=== PATIENT | female | born 1955 | race Caucasian/White ===

== ENCOUNTER 2018-03-08 19:05 | Emergency (ER) | payer BC ==
[2018-03-08 19:22] VITALS: BP 129/68; PULSE 100; RESP 20
[2018-03-08] MEDS ORDERED: HYDROcodone/APAP 5-325MG 1 EACH TAB PO STA (20:01)
[2018-03-08 20:20] VITALS: TEMP 99.1
--- NOTE | 2018-03-08 20:24 | ED ---
Lower Extremity Injury HPI - General Chief Complaint: Extremity Injury, Lower Stated Complaint: rt foot injury Time Seen by Provider: 03/08/18 19:32 Source: patient Mode of arrival: ambulatory Limitations: no limitations - History of Present Illness Initial Comments: This is a 62-year-old female who denies any past medical history who presents today for chief complaint of fall. Patient states that 2:30pm this afternoon she was helping move things out of her late sister's home, he was carrying a box of glasses and cannot see her feet she then tripped over a pile plastic shelving, stating that she rolled her right ankle, patient stated that she then felt to her bottom because of the pain in her right ankle. However she was able to stand, partial weight-bear, and ambulate following the fall. Pt states the pain is 6-8/10 that is localized to the right ankle and right side of forefoot, without radiation. Patient denies any loss consciousness, head injury , any chest pain, shorts breath or dizziness prior to fall. Patient states that it was mechanical nature. Patient really noticed swelling to the lateral aspect of her right ankle. She tried to ice and elevate her ankle and tibia ibuprofen 800 for pain- she stated this did not help. Pt denies numbness, tingling, parathesias, loss of sensation, coolness of the extremity, creptius/ laxity of the ankle joint, change in skin color. Pt presented to the ER when the swelling increased and pain wound not subside. Patient denies any recent fever, chills, shortness of breath, chest pain, back pain, abdominal pain, nausea or vomiting, numbness or tingling, dysuria or hematuria, constipation or diarrhea, headaches or visual changes, or any other complaints. - Related Data Home Medications Medication Instructions Recorded Confirmed Aspirin EC [Ecotrin Low Dose] 81 mg PO DAILY 03/08/18 03/08/18 Cholecalciferol [Vitamin D3] 1,000 unit PO DAILY 03/08/18 03/08/18 Cyanocobalamin [Vitamin B-12] 500 mcg PO DAILY 03/08/18 03/08/18 Ibuprofen [Motrin] 800 mg PO DAILY PRN 03/08/18 03/08/18 Levothyroxine Sodium [Synthroid] 100 mcg PO DAILY 03/08/18 03/08/18 Pravastatin Sodium [Pravachol] 40 mg PO HS 03/08/18 03/08/18 Turmeric Root Extract [Turmeric] 500 mg PO DAILY 03/08/18 03/08/18 Vitamin E 100 unit PO DAILY 03/08/18 03/08/18 buPROPion HCL [Wellbutrin SR] 200 mg PO BID 03/08/18 03/08/18 Allergies Allergy/AdvReac Type Severity Reaction Status Date / Time Iodinated Contrast- Oral and Allergy Anaphylaxis Verified 03/08/18 19:30 IV Dye Penicillins Allergy Rash/Hives Verified 03/08/18 19:30 Review of Systems ROS Statement: Those systems with pertinent positive or pertinent negative responses have been documented in the HPI. ROS Other: All systems not noted in ROS Statement are negative. Constitutional: Denies: fever, chills ENT: Denies: ear pain Respiratory: Denies: cough, dyspnea, wheezes, stridor Cardiovascular: Denies: chest pain, palpitations Endocrine: Denies: fatigue Gastrointestinal: Denies: abdominal pain, nausea, vomiting, diarrhea, hematemesis Genitourinary: Denies: urgency, dysuria Musculoskeletal: Reports: as per HPI, joint swelling, arthralgia Skin: Denies: lesions, change in color Neurological: Denies: headache, weakness, numbness, paresthesias, confusion, abnormal gait Past Medical History Past Medical History: No Reported History History of Any Multi-Drug Resistant Organisms: None Reported Past Surgical History: No Surgical Hx Reported Past Psychological History: No Psychological Hx Reported Smoking Status: Current every day smoker Past Alcohol Use History: None Reported Past Drug Use History: None Reported General Exam - General Exam Comments Initial Comments: General: The patient is awake and alert, in no distress, and does not appear acutely ill. Eye: Pupils are equal, round and reactive to light, extra-ocular movements are intact. No nystagmus. There is normal conjunctiva bilaterally. No signs of icterus. Ears, nose, mouth and throat: There are moist mucous membranes and no oral lesions. Neck: The neck is supple, there is no tenderness or JVD. Cardiovascular: There is a regular rate and rhythm. No murmur, rub or gallop is appreciated. Respiratory: Lungs are clear to auscultation, respirations are non-labored, breath sounds are equal. No wheezes, stridor, rales, or rhonchi. Musculoskeletal: There is soft tissue swelling over the lateral aspect of the right lateral malleolus. No obvious deformities or palpable step offs. Pt able to fully range and 5/5 strength with dorsiflex/plantarflex/invert and ines ankle joint of the right ankle, however she complains of pain at the ankle joint. No laxity or crepitus noted. Tenderness to palpation over the lateral aspect of the left foot and proximal forefoot, including lateral malleolus. No tenderness over medial malleolus or the proximal tibia/fibula. No pain with compression of the tibia and fibula. Sensation intact of LE equally b/l. Pulses equal bilaterally 2+DP and posterior tibial. Compartments soft and compressible. Extremities warm to touch, no pallor. Pt able to weight bear with discomfort. Full ROM, 5/5 strength of the knee joints b/l, and all 5 digits of feet b/l at MTP, PIP and DIP joints. Neurological: A&O x 3. CN II-XII intact, There are no obvious motor or sensory deficits. Coordination appears grossly intact. Speech is normal. Skin: Skin is warm and dry and no rashes or lesions are noted. Psychiatric: Cooperative, appropriate mood & affect, normal judgment. Limitations: no limitations Course Vital Signs 03/08/18 19:18 Temperature 99.1 F Pulse Rate 100 Respiratory 20 Rate Blood Pressure 129/68 O2 Sat by Pulse 95 Oximetry Medical Decision Making - Medical Decision Making Pt given norco for pain mgmt due to her recently taking ibuprofen 800mg without pain relief. She stated that this took the edge off the pain. XR of foot and ankle obtained returned (-). XR reviewed with Dr. Ortega and case discussed in detail. Given history, mechanism of injury and physical examination findings there is concern for ligamentous injury. Pt neurovascularly intact and compartments are compressible- I am not concerned for a compartment syndrome at this time. Pt was placed in a walking airboot and told to f/u with orthopedic surgery for further evaluation and treatment. Pt was instructed to take ibuprofen or tylenol for pain management as well ice, elevate and rest the ankle. Pt agreed with plan. Pt was instructed to return to the ED for worsening , new or change in symptoms. Pt agree with plan and was d/c in stable condition. Disposition Clinical Impression: Right ankle pain, Right ankle sprain Disposition: HOME SELF-CARE Condition: Good Instructions: Ankle Sprain (ED) Additional Instructions: Please use over the counter medication for pain as discussed. Please follow-up with orthopedics in 1-2 days. Rest, ice, and elevate ankle as discussed. Please use air cast until further orthopedic follow-up and recommendations. Please return to emergency room if the symptoms increase or worsen or for any other concerns as discussed. Is patient prescribed a controlled substance at d/c from ED?: No Referrals: Gwen Watts MD [Primary Care Provider] - 1-2 days Jose Schrader DO [Doctor of Osteopathic Medicine] - 1-2 days Time of Disposition: 21:01
--- NOTE | 2018-03-08 20:31 | XR ---
EXAMINATION TYPE: XR foot complete RT DATE OF EXAM: 03/08/2018 COMPARISON: NONE HISTORY: Fall today. Pain TECHNIQUE: 3 views FINDINGS: I see no fracture nor dislocation. There are plantar and Achilles calcaneal spurs. There ar e no erosions. IMPRESSION: Calcaneal spurs. No fracture seen.
--- NOTE | 2018-03-08 20:32 | XR ---
EXAMINATION TYPE: XR ankle complete RT DATE OF EXAM: 03/08/2018 COMPARISON: NONE HISTORY: Ankle pain TECHNIQUE: 3 views FINDINGS: Ankle mortise is anatomic. I see no fracture nor dislocation. There are moderate size plant ar and Achilles calcaneal spurs. IMPRESSION: Calcaneal spurs. No fracture.
== END 2018-03-08 21:16 | disposition home or self-care (01) ==
LOC: EC 19:05
DX: S93.401A Sprain of unspecified ligament of right ankle, initial encounter (principal); F17.200 Nicotine dependence, unspecified, uncomplicated; Z79.82 Long term (current) use of aspirin; Z79.899 Other long term (current) drug therapy; Z91.041 Radiographic dye allergy status; Z88.0 Allergy status to penicillin; W01.0XXA Fall on same level from slipping, tripping and stumbling without subsequent striking against object, initial encounter; Y92.009 Unspecified place in unspecified non-institutional (private) residence as the place of occurrence of the external cause; Y93.89 Activity, other specified
CPT/HCPCS: 73610; 73630; 99283; L4350